=== PATIENT | female | born 1995 | race Caucasian/White ===

== ENCOUNTER 2018-03-16 12:07 | Emergency (ER) | payer OTHER ==
[2018-03-16 12:32] VITALS: BP 151/85
[2018-03-16 13:42] LABS: BACTERIA,URINE FEW /HPF (0-FEW); BILIRUBIN,URINE NEG (NEG); CLARITY,URINE HAZY; COLOR,URINE AMBER; GLUCOSE,URINE NEG (NEG); NITRITE,URINE NEG (NEG); RBC,URINE RARE /HPF (0-2); UROBILINOGEN,URINE 0.2 mg/dL (0.2 mg/dL); WBC,URINE RARE /HPF (0-4)
[2018-03-16 13:43] LABS: SQUAMOUS EPITHELIAL CELL,UR FEW /LPF
--- NOTE | 2018-03-16 13:45 | PHYS DOC ---
Past History Past Medical History: No Pertinent History Past Surgical History: , Pacemaker Smoking: Cigarettes, Less than 1pk/day Alcohol Use: None Drug Use: None Adult General Chief Complaint Chief Complaint: VAGINAL PROBLEM HPI HPI 22-year-old female presents with one-week history of low back pain. Patient denies any trauma or overuse injury. She describes it as a deep ache worse on the left. She did have a earlier this year with complications after the spinal anesthesia. She is unsure if this is related. She denies fever or chills. She denies dysuria or hematuria. She is not currently taking any medications for the pain. Patient also is concerned about a vaginal lesion that she noticed yesterday.The small area rash on the left side of her labia. She would like the tested for STDs in general. Patient is stated to be in a monogamous relationship. She has not had general lesions in the past. She has had gonorrhea in her teens. Review of Systems Review of Systems Constitutional: Denies fever or chills [] Eyes: Denies change in visual acuity, redness, or eye pain [] HENT: Denies nasal congestion or sore throat [] Respiratory: Denies cough or shortness of breath [] Cardiovascular: No additional information not addressed in HPI [] GI: Denies abdominal pain, nausea, vomiting, bloody stools or diarrhea [] : Vaginal lesion[] Musculoskeletal: Low back pain[] Integument: Denies rash or skin lesions [] Neurologic: Denies headache, focal weakness or sensory changes [] Endocrine: Denies polyuria or polydipsia [] All other systems were reviewed and found to be within normal limits, except as documented in this note. Allergies Allergies Allergies Coded Allergies Type Severity Reaction Last Updated Verified No Known Drug Allergies 04/20/15 No Physical Exam Physical Exam Constitutional: Well developed, well nourished, no acute distress, non-toxic appearance. [] HENT: Normocephalic, atraumatic, bilateral external ears normal, oropharynx moist, no oral exudates, nose normal. [] Eyes: PERRLA, EOMI, conjunctiva normal, no discharge. [] Neck: Normal range of motion, no tenderness, supple, no stridor. [] Cardiovascular:Heart rate regular rhythm, no murmur [] Lungs & Thorax: Bilateral breath sounds clear to auscultation [] Abdomen: Bowel sounds normal, soft, no tenderness, no masses, no pulsatile masses. [] Skin: Warm, dry, no erythema, no rash. [] Back: No tenderness, no CVA tenderness. [] Extremities: No tenderness, no cyanosis, no clubbing, ROM intact, no edema. [] Neurologic: Alert and oriented X 3, normal motor function, normal sensory function, no focal deficits noted. [] Psychologic: Affect normal, judgement normal, mood normal. : 1.5 cm diameter lesion with multiple small vesicular looking areas within on the left labia majora. Internal exam unremarkable. Thin clear discharge with no odor. [] Current Patient Data Vital Signs Vital Signs Date Time Temp Pulse Resp B/P (MAP) Pulse Ox O2 Delivery O2 Flow Rate FiO2 03/16/18 12:32 101 18 97 Room Air EKG EKG [] Radiology/Procedures Radiology/Procedures [] Course & Med Decision Making Course & Med Decision Making Pertinent Labs and Imaging studies reviewed. (See chart for details) The patient's wet prep is negative. 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 I did perform a scraping and sent the specimen to the lab. Her urine is negative for infection. Her GC chlamydia and herpes PCR are pending. The patient is stable for discharge at this time. I have advised ibuprofen or naproxen for her low back pain. If it persists she should consider physical therapy. [] Dragon Disclaimer Dragon Disclaimer This electronic medical record was generated, in whole or in part, using a voice recognition dictation system. Departure Departure: Referrals: PCP,NO (PCP) Scripts Valacyclovir Hcl (VALACYCLOVIR) 1,000 Mg Tablet 1 TAB PO BID for 10 Days, #20 TAB 3 Refills Prov: NED SCHULER DO 03/16/18 NED SCHULER DO Mar 16, 2018 13:45
[2018-03-16] MEDS ORDERED: VALA1000 PO (14:50)
[2018-03-18 15:11] LABS: CHLAMYDIA PROBE Negative (Negative)
[2018-03-20 21:12] LABS: HERPES SIMPLEX TYPE 1 Negative (Negative); HERPES SIMPLEX TYPE 2 Positive (Negative)
== END 2018-03-16 14:55 | disposition home or self-care (01) ==
LOC: ER 12:07
DX: M54.5 Low back pain (principal); L98.8 Other specified disorders of the skin and subcutaneous tissue; F17.210 Nicotine dependence, cigarettes, uncomplicated; Z98.890 Other specified postprocedural states; Z95.0 Presence of cardiac pacemaker
CPT/HCPCS: 36415; 81001; 87491; 87529; 87591; 99284; Q0111

== ENCOUNTER 2019-01-08 19:50 | Emergency (ER) | payer SELFPAY ==
[~2019-01-08] VITALS: Ht 170.2 cm; Wt 120.2 kg
[~2019-01-08 19:50] MED LIST: VALA1000 PO
[2019-01-08 20:02] VITALS: BP 137/68
--- NOTE | 2019-01-08 21:26 | PHYS DOC ---
Past History Past Medical History: No Pertinent History Past Surgical History: , Pacemaker Smoking: Cigarettes, Less than 1pk/day Alcohol Use: None Drug Use: None Adult General Chief Complaint Chief Complaint: BACK PAIN - NO INJURY HPI HPI Patient is a 23-year-old female who presents with complaint of vomiting and diarrhea as well as back pain. She indicates that the diarrhea started closed week ago but the vomiting had started yesterday. She states that she's only had a couple of episodes of vomiting. She states that the pain is in her lower back and is more central. She states the pain is worsened with movement and bending over. She denies any loss of bowel or bladder control and has no saddle anesthesia. She rates pain as moderate. Patient indicates that she does not believe that she is as she has had her tubes tied.[] Review of Systems Review of Systems Constitutional: Denies fever or chills [] Respiratory: Denies cough or shortness of breath [] Cardiovascular: No additional information not addressed in HPI [] GI: Denies abdominal pain. Admits to vomiting and diarrhea [] Musculoskeletal: Complains of lower back pain [] Integument: Denies rash or skin lesions [] Neurologic: Denies headache, focal weakness or sensory changes [] Allergies Allergies Allergies Coded Allergies Type Severity Reaction Last Updated Verified No Known Drug Allergies 04/20/15 No Physical Exam Physical Exam Constitutional: Well developed, well nourished, no acute distress, non-toxic appearance. [] Cardiovascular:Heart rate regular rhythm, no murmur [] Lungs & Thorax: Bilateral breath sounds clear to auscultation [] Abdomen: Bowel sounds normal, soft, no tenderness. [] Back: There is mild tenderness to palpation in the right paraspinal musculature in the lumbar region. [] Neurologic: Alert and oriented X 3, no focal deficits noted. [] Current Patient Data Vital Signs Vital Signs Date Time Temp Pulse Resp B/P (MAP) Pulse Ox O2 Delivery O2 Flow Rate FiO2 01/08/19 20:02 98.4 84 20 97 Room Air EKG EKG [] Radiology/Procedures Radiology/Procedures [] Course & Med Decision Making Course & Med Decision Making Pertinent Labs and Imaging studies reviewed. (See chart for details) [] Dragon Disclaimer Dragon Disclaimer This electronic medical record was generated, in whole or in part, using a voice recognition dictation system. Departure Departure: Impression: Primary Impression: Gastroenteritis Additional Impression: Low back pain Disposition: HOME, SELF-CARE Condition: STABLE Referrals: PCP,NO (PCP) Patient Instructions: Back Pain, Adult, Viral Gastroenteritis Scripts Methocarbamol (ROBAXIN-750) 750 Mg Tablet 1 TAB PO TID PRN for MUSCLE SPASMS, #15 TAB Prov: ARMEN MORA Jr. DO 01/08/19 Diphenoxylate Hcl/Atropine (LOMOTIL TABLET) 1 Each Tablet 1 TAB PO TID PRN for DIARRHEA, #15 TAB Prov: ARMEN MORA Jr. DO 01/08/19 Tramadol Hcl (TRAMADOL HCL) 50 Mg Tablet 50 MG PO PRN Q6HRS PRN for PAIN, #12 TAB Prov: ARMEN MORA Jr. DO 01/08/19 Ondansetron Hcl (ZOFRAN) 4 Mg Tablet 4 MG PO Q6HRS PRN for NAUSEA, #12 TAB Prov: ARMEN MORA Jr. DO 01/08/19 Problem Qualifiers Additional Impression: Low back pain Chronicity: acute Back pain laterality: unspecified Sciatica presence: without sciatica Qualified Codes: M54.5 - Low back pain ARMEN MORA Jr. DO Jan 08, 2019 21:26
[2019-01-08 21:27] LABS: BACTERIA,URINE 0 /HPF (0-FEW); BILIRUBIN,URINE NEG (NEG); CLARITY,URINE CLEAR; COLOR,URINE YELLOW; GLUCOSE,URINE NEG (NEG); NITRITE,URINE NEG (NEG); RBC,URINE 0 /HPF (0-2); SQUAMOUS EPITHELIAL CELL,UR OCC /LPF; UROBILINOGEN,URINE 0.2 mg/dL (0.2 mg/dL); WBC,URINE OCC /HPF (0-4)
[2019-01-08] MEDS: ACETAMINOPHEN 500 MG TABLET PO ONE (21:51)
[2019-01-08] MEDS ORDERED: ONDA4TAB7 PO (21:58)
[2019-01-08] MEDS ORDERED: TRAM50TA PO (21:58)
[2019-01-08] MEDS ORDERED: DIPH1TAB PO (21:58)
[2019-01-08] MEDS ORDERED: METH-38 PO (21:58)
== END 2019-01-08 22:10 | disposition home or self-care (01) ==
LOC: ER 19:50
DX: K52.9 Noninfective gastroenteritis and colitis, unspecified (principal); M54.5 Low back pain; F17.210 Nicotine dependence, cigarettes, uncomplicated; Z98.890 Other specified postprocedural states; Z95.0 Presence of cardiac pacemaker
CPT/HCPCS: 81001; 99283

== ENCOUNTER 2019-07-26 12:34 | Emergency (ER) | payer SELFPAY ==
[~2019-07-26] VITALS: Ht 170.2 cm; Wt 122.2 kg
[~2019-07-26 12:34] MED LIST changes: +DIPH1TAB PO; +METH-38 PO; +ONDA4TAB7 PO; +TRAM50TA PO; -VALA1000 PO; +VALA10008 PO
[2019-07-26 12:44] VITALS: BP 142/80
--- NOTE | 2019-07-26 12:56 | PHYS DOC ---
Past History Past Medical History: UTI Past Surgical History: , Pacemaker Smoking: Cigarettes, Less than 1pk/day Alcohol Use: Rarely Drug Use: None Adult General Chief Complaint Chief Complaint: PAIN ON URINATION [facility] Patient is a 24-year-old female presents with complaint of 3 weeks of dysuria seems to be getting worse. She also has increased frequency and feeling of incomplete voiding. No fever or chills reported. History of UTIs as a child. Has been taking Tylenol without relief. Pain is moderate Review of Systems Review of Systems All other ROS is negative unless otherwise stated in [facility] Allergies Allergies Allergies Coded Allergies Type Severity Reaction Last Updated Verified No Known Drug Allergies 04/20/15 No Physical Exam Physical Exam See above Constitutional: Well developed, well nourished, no acute distress, non-toxic appearance. [] HENT: Normocephalic, atraumatic, bilateral external ears normal, oropharynx moist, no oral exudates, nose normal. [] Eyes: PERRLA, EOMI, conjunctiva normal, no discharge. [] Neck: Normal range of motion, no tenderness, supple, no stridor. [] Cardiovascular:Heart rate regular rhythm, no murmur [] Lungs & Thorax: Bilateral breath sounds clear to auscultation [] Abdomen: Bowel sounds normal, soft, no tenderness, no masses, no pulsatile masses. [] Skin: Warm, dry, no erythema, no rash. [] Back: No tenderness, no CVA tenderness. [] Extremities: No tenderness, no cyanosis, no clubbing, ROM intact, no edema. [] Neurologic: Alert and oriented X 3, normal motor function, normal sensory function, no focal deficits noted. [] Psychologic: Affect normal, judgement normal, mood normal. [] Current Patient Data Vital Signs Vital Signs Date Time Temp Pulse Resp B/P (MAP) Pulse Ox O2 Delivery O2 Flow Rate FiO2 07/26/19 12:44 97.9 92 18 142/80 (100) 98 Room Air Lab Results Laboratory Tests Test 07/26/19 13:23 Urine Collection Type Unknown Urine Color Yellow Urine Clarity Turbid Urine pH 5.5 Urine Specific [place] 1.025 Urine Protein Neg Urine Glucose (UA) Neg mg/dL Urine Ketones (Stick) Neg mg/dL Urine Blood Small Urine Nitrite Neg Urine Bilirubin Neg Urine Urobilinogen Dipstick 0.2 mg/dL Urine Leukocyte Esterase Large Urine RBC 6-10 /HPF Urine WBC >40 /HPF Urine Squamous Epithelial Cells Many /LPF Urine Bacteria Many /HPF Urine Mucus Slight /LPF EKG EKG [] Radiology/Procedures Radiology/Procedures [] Course & Med Decision Making Course & Med Decision Making Pertinent Labs and Imaging studies reviewed. (See chart for details) [] Dragon Disclaimer Dragon Disclaimer This electronic medical record was generated, in whole or in part, using a voice recognition dictation system. Departure Departure: Impression: Primary Impression: UTI (urinary tract infection) Disposition: HOME, SELF-CARE Condition: STABLE Referrals: PCP,NO (PCP) Patient Instructions: Urinary Tract Infection Scripts Sulfamethoxazole/Trimethoprim (BACTRIM DS TABLET) 1 Each Tablet 1 TAB PO BID for UTI for 10 Days, #20 TAB 0 Refills Prov: BERNARD RAMOS DO 07/26/19 BERNARD RAMOS DO Jul 26, 2019 12:56
[2019-07-26 13:43] LABS: BILIRUBIN,URINE NEG (NEG); CLARITY,URINE TURBID; COLOR,URINE YELLOW; GLUCOSE,URINE NEG (NEG); NITRITE,URINE NEG (NEG); UROBILINOGEN,URINE 0.2 mg/dL (0.2 mg/dL)
[2019-07-26 13:44] LABS: BACTERIA,URINE MANY /HPF (0-FEW); SQUAMOUS EPITHELIAL CELL,UR MANY /LPF; WBC,URINE >40 /HPF (0-4)
[2019-07-26] MEDS ORDERED: SULF1TAB24 PO (13:53)
== END 2019-07-26 13:58 | disposition home or self-care (01) ==
LOC: ER 12:34
DX: N39.0 Urinary tract infection, site not specified (principal); F17.210 Nicotine dependence, cigarettes, uncomplicated; Z95.0 Presence of cardiac pacemaker
CPT/HCPCS: 81001; 87086; 99284

== ENCOUNTER 2019-10-21 13:34 | Emergency (ER) | payer SELFPAY ==
[~2019-10-21] VITALS: Ht 170.2 cm; Wt 122.2 kg
[2019-10-21 13:34] VITALS: BP 140/96
[~2019-10-21 13:34] MED LIST changes: +SULF1TAB24 PO
--- NOTE | 2019-10-21 14:24 | PHYS DOC ---
Past History Past Medical History: UTI Past Surgical History: , Pacemaker Smoking: Cigarettes, Less than 1pk/day Alcohol Use: Rarely Drug Use: None Adult General Chief Complaint Chief Complaint: LACERATION/AVULSION HPI HPI Patient is a 24 year old female who presents with complaint of laceration to the right middle finger. The patient states that she cut her right fingertip on a broken glass window at her home. This kept the fingertip on the finger pad of her right middle finger. This happened shortly prior to arrival. Patient has been holding pressure to the affected area. Notes continued oozing of blood from the wound. Denies any other injuries. Patient notes tetanus immunization up-to-date. Review of Systems Review of Systems Constitutional: Denies fever or chills [] Eyes: Denies change in visual acuity, redness, or eye pain [] HENT: Denies nasal congestion or sore throat [] Musculoskeletal: Denies back pain or joint pain [] Integument: Wound to the right middle fingertip [] Neurologic: Denies headache, focal weakness or sensory changes [] All other systems were reviewed and found to be within normal limits, except as documented in this note. Allergies Allergies Allergies Coded Allergies Type Severity Reaction Last Updated Verified No Known Drug Allergies 04/20/15 No Physical Exam Physical Exam Constitutional: Well developed, well nourished, no acute distress, non-toxic appearance. [] HENT: Normocephalic, atraumatic, bilateral external ears normal, oropharynx moist, no oral exudates, nose normal. [] Eyes: PERRLA, EOMI, conjunctiva normal, no discharge. [] Skin: Warm, dry, 2 cm avulsion of the fingertip on the third digit of right hand with exposed subcutaneous tissue, mild to moderate persistent oozing of blood from wound edges. [] Extremities: No tenderness, no cyanosis, no clubbing, ROM intact, no edema. [] Neurologic: Alert and oriented X 3, normal motor function, normal sensory function, no focal deficits noted. [] Current Patient Data Vital Signs Vital Signs Date Time Temp Pulse Resp B/P (MAP) Pulse Ox O2 Delivery O2 Flow Rate FiO2 10/21/19 13:34 98.2 77 20 140/96 (111) 100 Room Air Lab Results Not performed EKG EKG Not performed [] Radiology/Procedures Radiology/Procedures Not performed [] Course & Med Decision Making Course & Med Decision Making Pertinent Labs and Imaging studies reviewed. (See chart for details) The patient's injuries consistent with fingertip avulsion. The patient's wound was soaked in chlorhexidine and warm water. Bleeding controlled while in the emergency department with direct pressure. Wound was dressed in the emergency department. Advise continued wound dressings at home over the next 7 to 10 days until wound is fully healed. Recommended use of bacitracin to the wound followed by nonadherent gauze and tape. Advised follow-up with primary doctor in 1 week for reevaluation and recommended return to the emergency department for any worsening symptoms. Patient voiced understanding and agreement with treatment plan. [] Dragon Disclaimer Dragon Disclaimer This electronic medical record was generated, in whole or in part, using a voice recognition dictation system. Departure Departure: Impression: Primary Impression: Avulsion of fingertip Disposition: HOME, SELF-CARE Condition: STABLE Referrals: PCP,NO (PCP) Patient Instructions: Fingertip Laceration Additional Instructions: Be sure to apply antibiotic ointment to your wound with each dressing change. It is recommended that you use bacitracin antibiotic ointment which is available [id number]. Return to the emergency department for any worsening symptoms. Problem Qualifiers Primary Impression: Avulsion of fingertip Encounter type: initial encounter Qualified Codes: S61.209A - Unspecified open wound of unspecified finger without damage to nail, initial encounter SHASHI BENAVIDES MD October 21, 2019 14:24
== END 2019-10-21 15:40 | disposition home or self-care (01) ==
LOC: ER 13:34
DX: S61.312A Laceration without foreign body of right middle finger with damage to nail, initial encounter (principal); F17.210 Nicotine dependence, cigarettes, uncomplicated; Z98.890 Other specified postprocedural states; Z95.0 Presence of cardiac pacemaker; W25.XXXA Contact with sharp glass, initial encounter; Y93.89 Activity, other specified; Y92.89 Other specified places as the place of occurrence of the external cause; Y99.8 Other external cause status
CPT/HCPCS: 99282

== ENCOUNTER 2020-03-01 21:28 | Emergency (ER) | payer SELFPAY ==
[~2020-03-01] VITALS: Ht 170.2 cm; Wt 119.9 kg
--- NOTE | 2020-03-01 21:50 | PHYS DOC ---
Past History Past Medical History: UTI Past Surgical History: , Pacemaker Smoking: Cigarettes, Less than 1pk/day Alcohol Use: Rarely Drug Use: None General Adult EDM: Chief Complaint: OVERDOSE HPI: HPI: The history was obtained from the patient. Patient is a 24-year-old female with no reported PMH who presents with a chief complaint of unresponsiveness. Per EMS they were called the patient's house by a friend for the patient being unresponsive. They did administer 4 mg of intranasal Narcan to which the patient then became more responsive and began breathing on her own. They state that they never lost pulses. Patient does state that she took a Percocet tablet this evening. She denies any intent to harm her self. Denies any current suicidal or homicidal ideations. Denies any other drug alcohol ingestions. She states that she feels somewhat nauseous and cold. Denies any chest pain or shortness of breath. No other complaints. Review of Systems: Review of Systems: Constitutional: Positive for unresponsiveness Eyes: Denies change in visual acuity HENT: Denies nasal congestion or sore throat Respiratory: Denies cough or shortness of breath Cardiovascular: Denies chest pain or edema GI: Denies abdominal pain, nausea, vomiting, bloody stools or diarrhea : Denies dysuria Musculoskeletal: Denies back pain or joint pain Integument: Denies rash Neurologic: Denies headache, focal weakness or sensory changes Endocrine: Denies polyuria or polydipsia Lymphatic: Denies swollen glands Psychiatric: Denies depression or anxiety Heart Score: Risk Factors: Risk Factors: DM, Current or recent (<one month) smoker, HTN, HLP, family history of CAD, obesity. Risk Scores: Score 0 - 3: 2.5% MACE over next 6 weeks - Discharge Home Score 4 - 6: 20.3% MACE over next 6 weeks - Admit for Clinical Observation Score 7 - 10: 72.7% MACE over next 6 weeks - Early Invasive Strategies Current Medications: Current Meds: Current Medications Medications (Trade) Dose Ordered Sig/Sandip Start Time Stop Time Status Last Admin Dose Admin Ondansetron HCl (Zofran) 4 mg 1X ONCE 03/01/20 22:00 03/01/20 22:01 Sodium Chloride 1,000 ml @ 1,000 mls/hr 1X ONCE 03/01/20 22:00 03/01/20 22:59 Allergies: Allergies: Allergies Coded Allergies Type Severity Reaction Last Updated Verified No Known Drug Allergies 04/20/15 No Physical Exam: PE: Constitutional: Well developed, well nourished, no acute distress, non-toxic appearance. [] HENT: Normocephalic, atraumatic, bilateral external ears normal, oropharynx moist, no oral exudates, nose normal. [] Eyes: PERRLA, EOMI, conjunctiva normal, no discharge. [] Neck: Normal range of motion, no tenderness, supple, no stridor. [] Cardiovascular:Heart rate regular rhythm, no murmur [] Lungs & Thorax: Bilateral breath sounds clear to auscultation [] Abdomen: Bowel sounds normal, soft, no tenderness, no masses, no pulsatile masses. [] Skin: Warm, dry, no erythema, no rash. [] Back: No tenderness, no CVA tenderness. [] Extremities: No tenderness, no cyanosis, no clubbing, ROM intact, no edema. [] Neurologic: Alert with intact cognitive function. No aphasia, dysarthria, or neglect. GCS 15. Pupils 3 mm briskly reactive b/l. No APD present. Cranial nerves 2-12 grossly intact; no facial asymmetry present, tongue midline, shoulder shrugging strength intact. Strength 5/5 and symmetric throughout. Light touch sensation intact throughout. Cerebellar testing appropriate without evidence of dysdiadochokinesia. DTR's 2+ in all 4 extremities. Negative pronator drift bilaterally. Gait normal Psychologic: Affect normal, judgement normal, mood normal. [] Current Patient Data: Labs: Laboratory Tests Test 03/01/20 21:53 Maternal Serum HCG Beta Subunit 2 mIU/mL Current Medications Medications (Trade) Dose Ordered Sig/Sandip Route PRN Reason Start Time Stop Time Status Last Admin Dose Admin Sodium Chloride 1,000 ml @ 1,000 mls/hr 1X ONCE IV 03/01/20 22:00 03/01/20 22:59 DC 03/01/20 22:00 Ondansetron HCl (Zofran) 4 mg 1X ONCE IVP 03/01/20 22:00 03/01/20 22:01 DC Vital Signs: Vital Signs Date Time Temp Pulse Resp B/P (MAP) Pulse Ox O2 Delivery O2 Flow Rate FiO2 03/01/20 21:38 97.5 115 16 100 EKG: EKG: EKG consistent with sinus tachycardia. Ventricular rate of 109 bpm. [place] normal. Patient does show frequent PVCs in a bigeminy pattern no acute ischemic changes appreciated. [] Radiology/Procedures: Radiology/Procedures: [] Course & Med Decision Making: Course & Med Decision Making Pertinent Labs and Imaging studies reviewed. (See chart for details) [] Patient is a 24-year-old female who arrives via EMS for unresponsiveness. She did respond to intranasal Narcan. Upon arrival the patient was alert and oriented x3. Her vital signs were unremarkable except for mild tachycardia. She does report taking 1 oral Percocet tablet for recreational purposes. She denies any intent to harm herself. Per EMS the patient was displaying signs of bigeminy. Given this an EKG was obtained. She does show brief runs of bigeminy. Given this laboratory work-up was attempted to be obtained. Patient was monitored in the emergency department and showed no signs of clinical respiratory depression. She is requesting discharge home at this time. I did explain to the patient that I am concerned that she may have a potentially lethal underlying heart rhythm. Furthermore expressed my concern given her recent unresponsiveness and unintentional overdose that it could related to underlying heart rhythm. Patient states she understand this and would like to go home. Patient does appear to have capacity at this time. She is alert and oriented x3. She denies any suicidal homicidal ideation. She does appear to have a basic understanding of her health care needs and potential consequences. Although I think she is making a poor decision patient will be leaving AGAINST MEDICAL ADVICE. She did leave the emergency department prior to laboratory analysis returning. She was encouraged to report back to the emergency departme nt anytime she went reevaluated. She was able to ambulate tolerate p.o. prior to discharge. Vital signs remained stable. She did have a friend present at bedside to drive her home. Dragon Disclaimer: Wanda Disclaimer: This electronic medical record was generated, in whole or in part, using a voice recognition dictation system. Departure Departure: Impression: Primary Impression: Accidental drug overdose Qualified Codes: T50.901A - Poisoning by unspecified drugs, medicaments and biological substances, accidental (unintentional), initial encounter Additional Impression: Abnormal EKG Disposition: AGAINST MEDICAL ADVICE Condition: STABLE Referrals: PCPWHITNEY (PCP) Patient Instructions: Narcotic Overdose Additional Instructions: Please follow-up with your primary care physician in the next 2 to 3 days. Please return emergency department any point should he want to be reevaluated. Please follow-up with your primary care surgeon regarding her abnormal EKG. Justification of Admission: Justification of Admission: Justification of Admission Dx: N/A JOE NOVOA DO Mar 01, 2020 21:50
[2020-03-01] MEDS: IV NORMAL SALINE 1,000ML 1,000 ML IV ONE (22:00)
[2020-03-01] MEDS ORDERED: ONDANSETRON PF 4 MG/2 ML VIAL. IVP ONE (22:00)
[2020-03-01 23:49] VITALS: BP 132/68
[2020-03-02 00:07] LABS: BASO % 0 % (0-3); EOS # 0.1 x10^3/uL (0.0-0.7); EOS % 1 % (0-3); HEMATOCRIT 34.8 % (36.0-47.0); HEMOGLOBIN 11.3 g/dL (12.0-15.5); LYMPH # 1.1 x10^3/uL (1.0-4.8); LYMPH % 8 % (24-48); MEAN CORPUSCULAR HEMOGLOBIN 27 pg (25-35); MEAN CORPUSCULAR HGB CONC 33 g/dL (31-37); MEAN CORPUSCULAR VOLUME 84 fL (79-100); MONO # 0.8 x10^3/uL (0.0-1.1); MONO % 6 % (0-9); NEUT % 85 % (31-73); PLATELET COUNT 197 x10^3/uL (140-400); RED BLOOD COUNT 4.16 x10^6/uL (3.50-5.40); RED CELL DISTRIBUTION WIDTH 14.8 % (11.5-14.5)
[2020-03-02 00:10] LABS: CALCIUM 8.4 mg/dL (8.5-10.1); CREATININE 0.8 mg/dL (0.6-1.0); GFR 87.4; POTASSIUM 3.2 mmol/L (3.5-5.1)
[2020-03-02 00:11] LABS: MAGNESIUM 1.9 mg/dL (1.8-2.4)
[2020-03-02 00:12] LABS: BARBITURATES NEG (NEG); BENZODIAZEPINES NEG (NEG); CANNABINOIDS POS (NEG); COCAINE NEG (NEG); METHADONE NEG (NEG); OPIATES POS (NEG); PHENCYCLIDINE NEG (NEG)
[2020-03-02 00:22] LABS: AMPHETAMINE/METHAMPHETAMINE NEG (NEG)
--- NOTE | 2020-03-03 07:28 | EKG ---
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
== END 2020-03-01 23:48 | disposition left against medical advice (07) ==
LOC: ER 21:28
DX: T50.901A Poisoning by unspecified drugs, medicaments and biological substances, accidental (unintentional), initial encounter (principal); R94.31 Abnormal electrocardiogram [ECG] [EKG]; F17.210 Nicotine dependence, cigarettes, uncomplicated; Z87.442 Personal history of urinary calculi; Z95.0 Presence of cardiac pacemaker; Z98.890 Other specified postprocedural states; Y92.89 Other specified places as the place of occurrence of the external cause
CPT/HCPCS: 36415; 80048; 80307; 83735; 84702; 85025; 93005; 96360; 99284-25; J7030

== ENCOUNTER 2020-06-11 12:10 | Emergency (ER) | payer SELFPAY ==
[~2020-06-11] VITALS: Ht 170.2 cm; Wt 118.1 kg
--- NOTE | 2020-06-11 12:52 | PHYS DOC ---
Past History Past Medical History: UTI Past Surgical History: Smoking: Cigarettes, Less than 1pk/day Alcohol Use: Rarely Drug Use: None Adult General Chief Complaint Chief Complaint: MULTIPLE COMPLAINTS [facility] HPI Patient is a 24F with reported past medical history of atrial fibrillation noncompliant with medications now presenting to emergency department with chest pain and fever. Patient has had intermittent episodes of chest pain for approximately 3 months which he states the left anterior area without any radiation. Describes it as a stabbing sensation. Patient states this returned last night around 10 PM. Patient states that since that time she is also noticed subjective fever but is not taken her temperature. Notes that she was sweating overnight. Denies any nausea, vomiting, abdominal pain, nasal congestion, as well as back, diarrhea. Review of Systems Review of Systems Constitutional: Denies fever or chills [] Eyes: Denies change in visual acuity, redness, or eye pain [] HENT: Denies nasal congestion or sore throat [] Respiratory: Denies cough or shortness of breath [] Cardiovascular: No additional information not addressed in HPI [] GI: Denies abdominal pain, nausea, vomiting, bloody stools or diarrhea [] : Denies dysuria or hematuria [] Musculoskeletal: Denies back pain or joint pain [] Integument: Denies rash or skin lesions [] Neurologic: Denies headache, focal weakness or sensory changes [] Endocrine: Denies polyuria or polydipsia [] All other systems were reviewed and found to be within normal limits, except as documented in this note. Allergies Allergies Allergies Coded Allergies Type Severity Reaction Last Updated Verified No Known Drug Allergies 04/20/15 No Physical Exam Physical Exam Constitutional: Well developed, well nourished, no acute distress, non-toxic appearance. [] HENT: Normocephalic, atraumatic, bilateral external ears normal, oropharynx moist, no oral exudates, nose normal. [] Eyes: PERRLA, EOMI, conjunctiva normal, no discharge. [] Neck: Normal range of motion, no tenderness, supple, no stridor. [] Cardiovascular:Heart rate regular rhythm, no murmur [] Lungs & Thorax: Bilateral breath sounds clear to auscultation [] Abdomen: Bowel sounds normal, soft, no tenderness, no masses, no pulsatile masses. [] Skin: Warm, dry, no erythema, no rash. [] Back: No tenderness, no CVA tenderness. [] Extremities: No tenderness, no cyanosis, no clubbing, ROM intact, no edema. [] Neurologic: Alert and oriented X 3, normal motor function, normal sensory function, no focal deficits noted. [] Psychologic: Affect normal, judgement normal, mood normal. [] EKG EKG NSR, no ST or T wave changes, normal intervals, no STEMI Heart Score HEART Score for Chest Pain: HEART Score for Chest Pain Response (Comments) Value History Slighlty/Non-Suspicious 0 ECG Normal 0 Age < 45 0 Risk Factors No Risk Factors 0 Troponin < Normal Limit 0 Total 0 Risk Factors: Risk Factors: DM, Current or recent (<one month) smoker, HTN, HLP, family history of CAD, obesity. Risk Scores: Risk Factors: DM, Current or recent (<one month) smoker, HTN, HLP, family history of CAD, obesity. Course & Med Decision Making Course & Med Decision Making Pertinent Labs and Imaging studies reviewed. (See chart for details) 24F presented with new onset of chest pain and fever. Patient does have a hi story of atrial fibrillation which was raised concern for cardiac abnormality at this time. Initial telemetry does not demonstrate any evidence of atrial fibrillation at this time her heart rate appears controlled. I am concerned for viral pneumonia including influenza or COVID-19. Will obtain basic ACS work-up and chest x-ray and nasal swab. 14:23 - CXR, EKG and labs normla, flu swab negative. Will discharge with quarantine instructions Dragon Disclaimer Dragon Disclaimer This electronic medical record was generated, in whole or in part, using a voice recognition dictation system. Departure Departure: Disposition: 01 DC HOME SELF CARE/HOMELESS Condition: GOOD Referrals: PCP,NO (PCP) Patient Instructions: Viral Syndrome SHASHI ROGERS MD Jun 11, 2020 12:51
[2020-06-11 13:08] LABS: BASO % 1 % (0-3); EOS # 0.2 x10^3/uL (0.0-0.7); EOS % 4 % (0-3); HEMOGLOBIN 11.7 g/dL (12.0-15.5); LYMPH # 1.7 x10^3/uL (1.0-4.8); LYMPH % 33 % (24-48); MEAN CORPUSCULAR HEMOGLOBIN 27 pg (25-35); MEAN CORPUSCULAR HGB CONC 32 g/dL (31-37); MEAN CORPUSCULAR VOLUME 86 fL (79-100); MONO # 0.3 x10^3/uL (0.0-1.1); MONO % 6 % (0-9); NEUT # 2.9 x10^3uL (1.8-7.7); NEUT % 57 % (31-73); PLATELET COUNT 193 x10^3/uL (140-400); RED CELL DISTRIBUTION WIDTH 15.7 % (11.5-14.5); WHITE BLOOD COUNT 5.2 x10^3/uL (4.0-11.0)
[2020-06-11 13:10] LABS: CALCIUM 8.6 mg/dL (8.5-10.1); CREATININE 0.8 mg/dL (0.6-1.0); GFR 87.4
--- NOTE | 2020-06-11 13:12 | RAD ---
Exam performed: 2 views of the chest. Indication: Reason: chest pain / Spl. Instructions: / History: Date of Service: 06/11/2020 12:53 PM . Comparison : None available Findings: PA and lateral radiographs of the chest reveal a normal cardiomediastinal contour. The lungs are joleen r. No pleural fluid is seen. The visualized osseous structures are unremarkable. Impression: No acute cardiopulmonary process seen. Electronically signed by: Brigette Connolly MD (06/11/2020 1:10 PM) [id number]
[2020-06-11 13:16] LABS: ALBUMIN 3.5 g/dL (3.4-5.0); ALBUMIN/GLOBULIN RATIO 1.1 (1.0-1.7); TOTAL BILIRUBIN 0.3 mg/dL (0.2-1.0); TOTAL PROTEIN 6.8 g/dL (6.4-8.2)
[2020-06-11 13:59] LABS: U PREG PATIENT NEGATIVE (NEG)
[2020-06-11 14:12] LABS: BILIRUBIN,URINE NEG (NEG); CLARITY,URINE HAZY; COLOR,URINE YELLOW; GLUCOSE,URINE NEG (NEG)
[2020-06-11 14:13] LABS: BACTERIA,URINE FEW /HPF (0-FEW); NITRITE,URINE NEG (NEG); RBC,URINE 0 /HPF (0-2); WBC,URINE RARE /HPF (0-4)
[2020-06-11 14:14] LABS: SQUAMOUS EPITHELIAL CELL,UR FEW /LPF
[2020-06-11 14:15] LABS: INFLUENZA A PATIENT NEGATIVE (NEGATIVE); INFLUENZA B PATIENT NEGATIVE (NEGATIVE)
[2020-06-11 14:30] VITALS: BP 113/72
--- NOTE | 2020-06-13 09:50 | EKG ---
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
== END 2020-06-11 14:40 | disposition home or self-care (01) ==
LOC: ER 12:10
DX: R07.89 Other chest pain (principal); R50.9 Fever, unspecified; R61 Generalized hyperhidrosis; I48.91 Unspecified atrial fibrillation; F17.210 Nicotine dependence, cigarettes, uncomplicated; Z20.828 Contact with and (suspected) exposure to other viral communicable diseases; Z87.440 Personal history of urinary (tract) infections; Z91.14 Patient's other noncompliance with medication regimen
CPT/HCPCS: 36415; 71046; 80053; 81001; 81025; 84484; 85025; 87804; 93005; 99285; C9803; U0003

== ENCOUNTER 2021-01-07 20:28 | Emergency (ER) | payer SELFPAY ==
[~2021-01-07] VITALS: Ht 170.2 cm; Wt 100.0 kg
[2021-01-07] MEDS ORDERED: ACETAMINOPHEN 500 MG TABLET PO ONE (20:45)
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
--- NOTE | 2021-01-07 21:16 | RAD ---
CT scan of the facial bones without contrast 01/07/2021 CLINICAL HISTORY: Right jaw pain post fall. TECHNIQUE: Unenhanced, contiguous, 0.625 mm axial sections were obtained through the facial bones and orbits. 3 mm reconstructed sagittal, axial and coronal images were obtained. One or more of the following individualized dose reduction techniques were utilized for this study: 1. Automated exposure control. 2. Adjustment of the mA and/or kV according to patient size. 3. Use of iterative reconstruction technique. FINDINGS: No facial bone fracture is seen. Both orbits are intact. The paranasal sinuses are essentia lly clear. No air-fluid level is seen. IMPRESSION: No facial bone fracture is seen. Electronically signed by: Bandar Hankins MD (01/07/2021 9:14 PM) [id number]
[2021-01-07] MEDS ORDERED: oxyCODONE IR 5 MG TABLET ONE (21:37)
[2021-01-07 21:44] VITALS: BP 136/78
[2021-01-07] MEDS ORDERED: oxyCODONE IR 5 MG TABLET PO PRN (21:45)
== END 2021-01-07 21:50 | disposition home or self-care (01) ==
LOC: ER 20:28
DX: R68.84 Jaw pain (principal); R22.0 Localized swelling, mass and lump, head; I48.91 Unspecified atrial fibrillation; F17.210 Nicotine dependence, cigarettes, uncomplicated; Z87.440 Personal history of urinary (tract) infections; Y08.89XA Assault by other specified means, initial encounter; Y93.89 Activity, other specified; Y92.89 Other specified places as the place of occurrence of the external cause; Y99.8 Other external cause status
CPT/HCPCS: 70486; 99284